=== PATIENT | male | born 1995 | race African-American/Black ===

== ENCOUNTER 2017-04-05 10:04 | Emergency (ER) | payer SELFPAY ==
[~2017-04-05] VITALS: Ht 188 cm; Wt 114.3 kg
[2017-04-05 10:44] VITALS: BP_SYST 128
== END 2017-04-05 12:19 | disposition left against medical advice (07) ==
LOC: SED 10:04
DX: R05 Cough (principal); Z53.21 Procedure and treatment not carried out due to patient leaving prior to being seen by health care provider